=== PATIENT | male | born 1950 | race Caucasian/White ===

== ENCOUNTER 2016-10-17 16:51 | Emergency (ER) | payer MEDICARE, OTHER ==
[2016-10-17 17:29] VITALS: BP 146/91
[2016-10-17] MEDS ORDERED: predniSONE 20 MG Tab PO ONE (17:38)
[2016-10-17] MEDS ORDERED: oxyCODONE 5 MG Tab PO ONE (17:38)
[2016-10-17] MEDS ORDERED: Diazepam 5 MG Tab PO ONE (17:38)
[2016-10-17] MEDS ORDERED: Lidocaine 5% 700 MG Patch TOP SCH (17:45)
--- NOTE | 2016-10-17 18:33 | EDM.PDOC ---
ED HPI GENERAL MEDICAL PROBLEM - General Chief Complaint: Back Pain or Injury Stated Complaint: SEVERE BACK PAIN Time Seen by Provider: 10/17/16 17:20 Source of Information: Reports: Patient History Limitations: Reports: No Limitations - History of Present Illness INITIAL COMMENTS - FREE TEXT/NARRATIVE: Prachi is a 66-year-old male who presents to the emergency department today with complaints of upper thoracic right-sided back pain. Patient reports he has had ongoing issues with upper back pain and was told to attend physical therapy by his physician at the [facility] patient reports he has been unable to tolerate because of the pain. Patient has not had any outpatient MRI imaging done up until this point, he does report x-rays have been done. Patient denies any injury or trauma. Patient reports he can normally manage his pain at home but it became severe yesterday so he presents here for further evaluation. Patient denies any upper extremity weakness or tingling. 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, Home Treatments Right Upper Back Pain Score (Numeric/FACES): 8 - Related Data Allergies Allergy/AdvReac Type Severity Reaction Status Date / Time ciprofloxacin Allergy Anaphylactic Verified 10/17/16 17:23 Shock Sulfa (Sulfonamide Allergy Hives Verified 10/17/16 17:23 Antibiotics) tetanus and diphtheria Allergy Cannot Verified 10/17/16 17:32 toxoids Remember Home Meds: Home Meds Amitriptyline [Elavil] 5 mg PO BEDTIME 10/17/16 [History] Past Medical History HEENT History: Reports: Impaired Vision Genitourinary History: Reports: BPH, Renal Calculus Hematologic History: Reports: B12 Deficiency - Infectious Disease History Infectious Disease History: Reports: Chicken Pox, Measles, Mumps - Past Surgical History GI Surgical History: Reports: Cholecystectomy Musculoskeletal Surgical History: Reports: Arthroscopic Knee, Shoulder Surgery, Other (See Below) Other Musculoskeletal Surgeries/Procedures:: bilateral foot surgery Social & Family History - Tobacco Use Smoking Status *Q: Never Smoker - Caffeine Use Caffeine Use: Reports: Coffee, Soda - Recreational Drug Use Recreational Drug Use: No ED ROS GENERAL - Review of Systems Review Of Systems: ROS reveals no pertinent complaints other than HPI. ED EXAM, UPPER BACK/NECK PAIN - Physical Exam Exam: See Below Exam Limited By: No Limitations General Appearance: Alert, WD/WN, No Apparent Distress Head Exam: Atraumatic Neck Exam: Non-Tender, Full Range of Motion, Normal Alignment, Normal Inspection Cardiovascular/Respiratory: Regular Rate, Rhythm, No Respiratory Distress GI/Abdominal: Normal Bowel Sounds, Soft, Non-Tender Back Exam: Normal Inspection, Paraspinal Tenderness (Right-sided paraspinal tenderness extending to right scapular region), Vertebral Tenderness (Upper thoracic with) Extremities: Normal Inspection, Normal Range of Motion, Non-Tender, Normal Capillary Refill, 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 Please refer to history of present illness and focused exam, it is likely that a combination of muscle spasm and inflammation are causing patient's symptoms. I feel that he would likely benefit from an outpatient MRI at some point. There is no acute signs for nerve impingement given the patient's reassuring exam to his bilateral upper extremities. Patient was given oral Valium and oxycodone here in the emergency department, I did start him on prednisone his first dose was given here as well. A lidocaine patch was applied for pain, patient reports significant improvement in his symptoms. I feel patient is stable to be discharged home, he can continue Tylenol at home, I did prescribe Ultram for severe pain, narcotic safety was discussed in detail, I will also continue patient on a prednisone taper which she was instructed to start tomorrow morning. Patient was encouraged to follow-up with his primary care provider for further evaluation, he was also given her orthopedic doctor's information from [facility], Dr. Mello if he prefers to follow-up in direction. Reasons to return to the emergency department were discussed, patient is agreeable to plan of care and was discharged in stable condition with family driving. - Orders/Labs/Meds Orders: Active Orders 24 hr Category Date Time Status Lidocaine 5% [Lidoderm 5%] Med 10/17/16 17:45 Active 700 mg TOP Q24H Medication Orders Lidocaine (Lidoderm 5%) 700 mg TOP Q24H BRITTANY Last Admin: 10/17/16 17:50 Dose: 700 mg Meds: Medications Generic Name Dose Route Start Last Admin Trade Name Freq PRN Reason Stop Dose Admin Lidocaine 700 mg 10/17/16 17:45 10/17/16 17:50 Lidoderm 5% TOP 700 mg Q24H BRITTANY Administration Discontinued Medications Generic Name Dose Route Start Last Admin Trade Name Freq PRN Reason Stop Dose Admin Diazepam 10 mg 10/17/16 17:38 10/17/16 17:46 Valium. PO 10/17/16 17:39 10 mg ONETIME ONE Administration Oxycodone HCl 10 mg 10/17/16 17:38 10/17/16 17:46 Oxycodone PO 10/17/16 17:39 10 mg ONETIME ONE Administration Prednisone 40 mg 10/17/16 17:38 10/17/16 17:46 Prednisone PO 10/17/16 17:39 40 mg ONETIME ONE Administration Departure - Departure Time of Disposition: 18:45 Disposition: Home, Self-Care 01 Condition: Good Clinical Impression: Acute thoracic back pain Qualifiers: Back pain laterality: right Qualified Code(s): M54.6 - Pain in thoracic spine - Discharge Information Instructions: Back Pain, Adult, [id number] Referrals: PCP,None [Primary Care Provider] - Forms: ED Department Discharge Additional Instructions: Take Prednisone as prescribed, start tomorrow morning. Take Ultram as needed for pain, no driving if you take this. I would highly recommend an outpatient MRI. You can call our orthopedic doctor, Dr. Mello for consult if you would prefer. - My Orders Last 24 Hours: My Active Orders 10/17/16 17:45 Lidocaine 5% [Lidoderm 5%] 700 mg TOP Q24H - Assessment/Plan Last 24 Hours: My Active Orders 10/17/16 17:45 Lidocaine 5% [Lidoderm 5%] 700 mg TOP Q24H
== END 2016-10-17 18:39 | disposition home or self-care (01) ==
LOC: JP.ED 16:51
DX: M54.6 Pain in thoracic spine (principal); Z90.49 Acquired absence of other specified parts of digestive tract; Z98.890 Other specified postprocedural states; Z88.1 Allergy status to other antibiotic agents; Z88.7 Allergy status to serum and vaccine; Z88.2 Allergy status to sulfonamides
CPT/HCPCS: 99283; A9270; 99284

== ENCOUNTER 2020-03-28 10:11 | Emergency (ER) | payer MEDICARE, OTHER ==
[2020-03-28 10:37] VITALS: BP 126/89; PULSE 120
--- NOTE | 2020-03-28 11:08 | EDM.PDOC ---
ED HPI GENERAL MEDICAL PROBLEM - General Chief Complaint: Genitourinary Problem Stated Complaint: KIDNEY STONE? Time Seen by Provider: 03/28/20 11:00 Source of Information: Reports: Patient History Limitations: Reports: No Limitations - History of Present Illness INITIAL COMMENTS - FREE TEXT/NARRATIVE: 70-year-old male with a history of renal stones in the past, is complaining of persistent bilateral flank pain for the past several days. It hurts to move, but he also feels a hesitancy when trying to urinate. No fevers or chills, no nausea or vomiting. Wants to be evaluated for renal stones. Onset: Gradual Duration: Day(s): (4 days of symptoms) Location: Reports: Back (Bilateral flank pain) Associated Symptoms: Reports: No Other Symptoms. Denies: Chest Pain, Cough, Malaise, Nausea/Vomiting, Shortness of Breath, Weakness Bilateral Lower Back Pain Score (Numeric/FACES): 5 - Related Data Allergies Allergy/AdvReac Type Severity Reaction Status Date / Time ciprofloxacin Allergy Anaphylactic Verified 03/28/20 10:43 Shock Sulfa (Sulfonamide Allergy Hives Verified 03/28/20 10:43 Antibiotics) tetanus and diphtheria Allergy Cannot Verified 03/28/20 10:43 toxoids Remember Home Meds: Home Meds Amitriptyline [Elavil] 25 mg PO BEDTIME 10/17/16 [History] Past Medical History HEENT History: Reports: Impaired Vision Genitourinary History: Reports: BPH, Renal Calculus Other Genitourinary History: last stone 09/10/18 Hematologic History: Reports: B12 Deficiency - Infectious Disease History Infectious Disease History: Reports: Chicken Pox, Measles, Mumps, Other (See Below) Other Infectious Disease History: valley fever 2019 - Past Surgical History GI Surgical History: Reports: Cholecystectomy Male Surgical History: Reports: Kidney Stone Extraction Musculoskeletal Surgical History: Reports: Arthroscopic Knee, Knee Replacement, Shoulder Surgery, Other (See Below) Other Musculoskeletal Surgeries/Procedures:: bilateral foot surgery Social & Family History - Tobacco Use Tobacco Use Status *Q: Former Tobacco User Years of Tobacco use: 20 Packs/Tins Daily: 0.5 Used Tobacco, but Quit: Yes Month/Year Tobacco Last Used: - Caffeine Use Caffeine Use: Reports: Coffee - Recreational Drug Use Recreational Drug Use: No ED ROS GENERAL - Review of Systems Review Of Systems: See Below Constitutional: Denies: Fever, Chills HEENT: Reports: No Symptoms Respiratory: Denies: Shortness of Breath, Cough Cardiovascular: Denies: Chest Pain GI/Abdominal: Denies: Abdominal Pain, Nausea, Vomiting : Reports: Urgency (At times has a urinary urgency but is unable to urinate) Musculoskeletal: Reports: Back Pain Skin: Reports: No Symptoms Neurological: Reports: No Symptoms ED EXAM, GENERAL - Physical Exam Exam: See Below Exam Limited By: No Limitations General Appearance: Alert, No Apparent Distress, Other (When I entered the exam room the patient is comfortably sitting at a chair reading a book) Eye Exam: Bilateral Eye: Normal Inspection Head: Atraumatic Neck: Supple, Non-Tender Respiratory/Chest: Lungs Clear GI/Abdominal: Non-Tender Back Exam: Other (No percussion tenderness of the flank areas but palpation causes some discomfort over the right flank). No: CVA Tenderness (R), CVA Tenderness (L) Neurological: Alert, Oriented Course - Vital Signs Last Recorded V/S: Last Vital Signs Temp 98.2 F 03/28/20 10:55 Pulse 120 H 03/28/20 10:55 Resp 17 03/28/20 10:55 BP 126/89 03/28/20 10:55 Pulse Ox 99 03/28/20 10:55 - Orders/Labs/Meds Labs: Laboratory Tests 03/28/20 Range/Units 11:02 Urine Color Yellow (YELLOW) Urine Appearance Clear (CLEAR) Urine pH 7.0 (5.0-8.0) Ur Specific [place] 1.020 (1.008-1.030) Urine Protein Negative (NEGATIVE) mg/dL Urine Glucose (UA) Negative (NEGATIVE) mg/dL Urine Ketones Negative (NEGATIVE) mg/dL Urine Occult Blood Negative (NEGATIVE) Urine Nitrite Negative (NEGATIVE) Urine Bilirubin Negative (NEGATIVE) Urine Urobilinogen 0.2 (0.2-1.0) EU/dL Ur Leukocyte Esterase Negative (NEGATIVE) Urine RBC Not seen (0-5) Urine WBC Not seen (0-5) Ur Epithelial Cells Not seen Amorphous Sediment Rare Urine Bacteria Not seen Urine Mucus Rare - Re-Assessments/Exams Free Text/Narrative Re-Assessment/Exam: 03/28/20 11:10 Patient has a long and recurring history of kidney stones, so UA was obtained and will be evaluated as well as an abdomen and pelvis CT without contrast. 03/28/20 11:57 UA is negative, CT shows no obstructive uropathy. Encourage the patient to use anti-inflammatories over the next 5 to 10 days, and stay active. Return anytime if worsening. Departure - Departure Time of Disposition: 12:27 Disposition: Home, Self-Care 01 Clinical Impression: Musculoskeletal back pain - Discharge Information Instructions: Acute Back Pain, Adult Referrals: Kae Tripp MD [Primary Care Provider] - Forms: ED Department Discharge Care Plan Goals: Consider a regular dose of anti-inflammatory such as ibuprofen or naproxen over the next 5 to 7 days, continue activity as tolerated and recheck in 1 week if not improving satisfactorily. Return sooner if worsening or concerns. Sepsis Event Note (ED) - Evaluation Sepsis Screening Result: No Definite Risk - Focused Exam Vital Signs: Vital Signs Temp Pulse Resp BP Pulse Ox 03/28/20 10:55 98.2 F 120 H 17 126/89 99 03/28/20 10:36 98.2 F 120 H 17 126/89 99
--- NOTE | 2020-03-28 12:06 | CT ---
Abdomen Pelvis wo Cont CLINICAL HISTORY: Flank pain COMPARISON: None. TECHNIQUE: Transverse scans were obtained from the base of the lungs to the pubic symphysis following oral contrast and IV infusion of contrast.Auto dosage reduction and iterative reconstructiontechniques employed. FINDINGS: The lung bases are clear. The liver shows no mass or biliary dilatation. The gallbladder has been removed. The spleen has a normal size and shape. The pancreas contains a lobulation of the pancreatic tail. This appears to be normal pancreatic tissue and is likely anatomic variant.. The adrenal glands appear normal bilaterally . There are multiple renal calculi. There are a few scattered punctate nonobstructing calcifications on the right. There are numerous punctate calcifications in the left kidney with 1 cm calcifications in the lower pole. There is no hydronephrosis. The ureters have a normal caliber. The aorta has some atheromatous plaque without aneurysm. No retroperitoneal lymphadenopathy is identified. No suspicious retroperitoneal lymphadenopathy is identified. The small intestinal configuration is nonacute. There is moderate retained stool throughout the colon. There are a few nonspecific small calcifications in the mesentery. IMPRESSION: Multiple nonobstructing renal calculi bilaterally, greater on the left. Moderate retained stool particularly right colon. No mass, adenopathy or inflammatory change
== END 2020-03-28 12:27 | disposition home or self-care (01) ==
LOC: JP.ED 10:11
DX: M54.5 Low back pain (principal); Z88.1 Allergy status to other antibiotic agents; Z88.2 Allergy status to sulfonamides; Z88.7 Allergy status to serum and vaccine; Z79.899 Other long term (current) drug therapy; Z87.891 Personal history of nicotine dependence
CPT/HCPCS: 74176; 74176-26; 81001; 99282; 99284-25

== ENCOUNTER 2020-07-31 06:59 | Emergency (ER) | payer OTHER ==
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
[2020-07-31 09:22] VITALS: BP 137/88; PULSE 96
== END 2020-07-31 08:55 | disposition home or self-care (01) ==
LOC: JP.ED 06:59
DX: S22.41XA Multiple fractures of ribs, right side, initial encounter for closed fracture (principal); Z88.1 Allergy status to other antibiotic agents; Z88.2 Allergy status to sulfonamides; Z88.7 Allergy status to serum and vaccine; Z86.16 Personal history of COVID-19; Z87.891 Personal history of nicotine dependence; V29.9XXA Motorcycle rider (driver) (passenger) injured in unspecified traffic accident, initial encounter
CPT/HCPCS: 71250; 99283; 99284-25

== ENCOUNTER 2020-09-06 18:15 | Emergency (ER) | payer OTHER ==
[2020-09-06 18:53] VITALS: BP 162/101; PULSE 108
--- NOTE | 2020-09-06 19:02 | EDM.PDOC ---
ED HPI GENERAL MEDICAL PROBLEM - General Chief Complaint: Respiratory Problem Stated Complaint: FALL - RIGHT SIDE PAIN Time Seen by Provider: 09/06/20 19:00 Source of Information: Reports: Patient History Limitations: Reports: No Limitations - History of Present Illness INITIAL COMMENTS - FREE TEXT/NARRATIVE: This is a 70 year old male presenting after a mechanical fall. Patient states he was putting gas in when he tried to step over the hose and tripped, falling onto his right side. He is complaining of pain in his right humerus and right lateral chest wall. He reports significant pain with moving his arm. no numbness, tingling, or weakness. He also notes a lot of pain with taking a deep breath, but doesn't really feel short of breath. he denies hitting his head or losing consciousness. He denies neck or back pain. He denies other injuries or trauma at this time. Right Trunk Pain Score (Numeric/FACES): 8 Right Arm Pain Score (Numeric/FACES): 7 - Related Data Allergies Allergy/AdvReac Type Severity Reaction Status Date / Time ciprofloxacin Allergy Anaphylactic Verified 09/06/20 18:58 Shock Sulfa (Sulfonamide Allergy Hives Verified 09/06/20 18:58 Antibiotics) tetanus and diphtheria Allergy Cannot Verified 09/06/20 18:58 toxoids Remember Home Meds: Home Meds Amitriptyline [Elavil] 25 mg PO BEDTIME 10/17/16 [History] Past Medical History HEENT History: Reports: Impaired Vision Genitourinary History: Reports: BPH, Renal Calculus Other Genitourinary History: last stone 09/10/18 Hematologic History: Reports: B12 Deficiency - Infectious Disease History Infectious Disease History: Reports: Chicken Pox, Measles, Mumps, Novel Coronavirus, Other (See Below) Other Infectious Disease History: valley fever 2019 - Past Surgical History GI Surgical History: Reports: Cholecystectomy Male Surgical History: Reports: Kidney Stone Extraction Musculoskeletal Surgical History: Reports: Arthroscopic Knee, Knee Replacement, Shoulder Surgery, Other (See Below) Other Musculoskeletal Surgeries/Procedures:: bilateral foot surgery Social & Family History - Tobacco Use Tobacco Use Status *Q: Never Tobacco User - Caffeine Use Caffeine Use: Reports: Coffee - Recreational Drug Use Recreational Drug Use: No ED ROS GENERAL - Review of Systems Review Of Systems: Comprehensive ROS is negative, except as noted in HPI. ED EXAM, GENERAL - Physical Exam Exam: See Below Exam Limited By: No Limitations General Appearance: Alert, No Apparent Distress Head: Atraumatic, Normocephalic. No: Facial Swelling, Facial Tenderness Neck: Supple, Non-Tender, Full Range of Motion. No: Tender Lateral, Tender Midline Respiratory/Chest: No Respiratory Distress, Lungs Clear, Normal Breath Sounds, Other (right chest wall is tender to palpation over the midaxillary line. There is no associated ecchymosis or crepitus. ) Cardiovascular: Regular Rate, Rhythm Extremities: Normal Range of Motion, Other (No right clavicle tenderness. No right shoulder deformity appreciated. Right mid and proximal humerus is tender to palpation without deformity. Right elbow is non-tender with normal ROM. the remainder of the extremities are non-tender to palpation with normal ROM of joints.) Neurological: Alert, Oriented, CN II-XII Intact, Normal Cognition, No Motor/Sens ory Deficits Psychiatric: Normal Affect, Normal Mood Skin Exam: Warm, Dry Course - Vital Signs Last Recorded V/S: Last Vital Signs Temp 98.3 F 09/06/20 19:02 Pulse 108 H 09/06/20 19:02 Resp 19 09/06/20 19:02 BP 162/101 H 09/06/20 19:02 Pulse Ox 96 09/06/20 19:02 - Orders/Labs/Meds Orders: Active Orders 24 hr Category Date Time Status Humerus Rt [CR] Stat Exams 09/06/20 19:14 Taken Meds: Medications Discontinued Medications Generic Name Dose Route Start Last Admin Trade Name Freq PRN Reason Stop Dose Admin Hydrocodone Bitart/Acetaminophen 1 tab 09/06/20 19:14 09/06/20 19:35 Acetaminophen/Hydrocodone 325-5 Mg Tab PO 09/06/20 19:15 Not Given ONETIME ONE Hydromorphone HCl 1 mg 09/06/20 19:25 09/06/20 19:36 Hydromorphone 1 Mg/Ml Syringe IM 09/06/20 19:26 1 mg ONETIME ONE Administration Departure - Departure Time of Disposition: 20:52 Disposition: Home, Self-Care 01 Clinical Impression: Contusion, arm, upper Closed rib fracture Qualifiers: Encounter type: subsequent encounter Rib fracture type: multiple ribs Laterality: right Fracture healing: with routine healing Qualified Code(s): S22.41XD - Multiple fractures of ribs, right side, subsequent encounter for fracture with routine healing Chest wall contusion Qualifiers: Encounter type: initial encounter Laterality: right Qualified Code(s): S20.211A - Contusion of right front wall of thorax, initial encounter - Discharge Information Instructions: Contusion, Rib Fracture Referrals: Kae Tripp MD [Primary Care Provider] - Forms: ED Department Discharge Additional Instructions: Use ice, tylenol, and ibuprofen as needed. Follow up with your primary care provider in 1 week if symptoms are not improving. Return to the Emergency Department if you develop worsening pain, shortness of breath, fever, or other concerning symptoms. Sepsis Event Note (ED) - Focused Exam Vital Signs: Vital Signs Temp Pulse Resp BP Pulse Ox 09/06/20 19:02 98.3 F 108 H 19 162/101 H 96 09/06/20 18:50 98.3 F 108 H 19 162/101 H 96 - My Orders Last 24 Hours: My Active Orders 09/06/20 19:14 Humerus Rt [CR] Stat - Assessment/Plan Last 24 Hours: My Active Orders 09/06/20 19:14 Humerus Rt [CR] Stat Assessment:: This is a 70 year old male presenting with right upper arm pain and right sided chest wall/rib pain after a mechanical fall. He denies hitting his head and there is no evidence of head trauma on exam. No neck or back pain. X-ray of the right humerus was obtained and did not reveal any evidence of fracture on preliminary review, but final radiology report was pending. CT of the chest was obtained due to concern for rib fracture and/or underlying pneumothorax or pulmonary contusion. This showed healing fracture of right ribs 3-7, no new fracture or changes. No pneumothorax. This also showed pulmonary nodules, which the patient was previously informed about and already aware of. There is no other evidence of injury or trauma on evaluation today. The patient is ambulatory here and is appropriate for discharge home and can use tylenol/ibuprofen for pain.
[2020-09-06] MEDS ORDERED: Acetaminophen/HYDROcodone 325-5 MG Tab PO ONE (19:14)
[2020-09-06] MEDS ORDERED: HYDROmorphone 1 MG/ML Syringe IM ONE (19:25)
--- NOTE | 2020-09-06 20:40 | CRLCT ---
For Patients: As a result of the Cures Act, medical imaging exams and procedure reports are released immediately into your electronic medical record. You may view this report before your referring provider. If you have questions, please contact your health care provider. INDICATION: Fall, rib pain, shortness of breath. TECHNIQUE: Chest CT without intravenous contrast. Coronal and sagittal reformats. COMPARISON: Chest CT 07/31/2020. FINDINGS: Central airways patent. Left upper lobe solid nodule measuring up to 1.8 cm appears unchanged (series 2, image 30). Similar inferiorly adjacent clustered micronodules extending along the major fissure (series 2, image 35). No new focal pulmonary opacity. No pneumothorax or pleural effusion. Normal cardiac size. Heavy coronary artery calcifications. No pericardial effusion or thoracic lymphadenopathy. Normal caliber thoracic aorta with mild atherosclerotic calcification. Unremarkable thyroid. Imaged upper abdomen demonstrates multiple nonobstructing renal calculi bilaterally. Cholecystectomy clips. Nondisplaced/healing fractures of right anterior ribs 3-7. No acute fracture identified. IMPRESSION: 1. Healing nondisplaced fractures of right anterior ribs 3-7. No pneumothorax or pleural fluid. 2. Unchanged left upper lobe 1.8 cm solid nodule, which remains indeterminate. Recommend further evaluation with PET-CT, as previously suggested. 3. Similar clustered micronodules inferiorly adjacent to the aforementioned nodule. Dictated by Brett Greenwood MD @ 09/06/2020 8:39:09 PM Please note that all CT scans at this facility use dose modulation, iterative reconstruction, and/or weight-based dosing when appropriate to reduce radiation dose to as low as reasonably achievable. Dictated by: Brett Greenwood MD @ 09/06/2020 20:39:17 (Electronically Signed)
--- NOTE | 2020-09-08 11:02 | CR ---
Humerus Rt CLINICAL HISTORY: Trip and fall FINDINGS: There is no acute fracture within the humerus. There is some mild widening of the AC joint. This may be chronic. IMPRESSION: Negative right humerus. Questionable widening of the AC joint. This may be chronic
== END 2020-09-06 21:05 | disposition home or self-care (01) ==
LOC: JP.ED 18:15
DX: S22.41XD Multiple fractures of ribs, right side, subsequent encounter for fracture with routine healing (principal); S40.021A Contusion of right upper arm, initial encounter; S20.211A Contusion of right front wall of thorax, initial encounter; Z88.1 Allergy status to other antibiotic agents; Z88.2 Allergy status to sulfonamides; Z88.7 Allergy status to serum and vaccine; W01.0XXA Fall on same level from slipping, tripping and stumbling without subsequent striking against object, initial encounter
CPT/HCPCS: 71250; 73060; 96372; 99284; J1170